=== PATIENT | male | born 1945 | race Caucasian/White ===

== ENCOUNTER 2016-11-02 04:52 | Emergency (ER) | payer MEDICARE, MEDICAID ==
[~2016-11-02] VITALS: Ht 165.1 cm; Wt 84.0 kg
[2016-11-02] MEDS ORDERED: AMLO-511 PO (05:09)
[2016-11-02] MEDS ORDERED: VALS1TAB81 PO (05:09)
[2016-11-02] MEDS ORDERED: METO50 PO (05:09)
[2016-11-02 08:44] VITALS: BP 150/80
== END 2016-11-02 08:46 | disposition home or self-care (01) ==
LOC: EMS 04:53
DX: M25.572 Pain in left ankle and joints of left foot (principal); I10 Essential (primary) hypertension; Z88.0 Allergy status to penicillin
CPT/HCPCS: 93971; 99284